=== PATIENT | male | born 1995 | race Asian ===

== ENCOUNTER 2017-07-08 09:47 | Emergency (ER) | payer OTHER ==
[2017-07-08 10:06] VITALS: TEMP 36.4
[2017-07-08] MEDS ORDERED: FAMOTIDINE 20MG/5ML IV PUSH IV STA (10:27)
[2017-07-08] MEDS ORDERED: SODIUM CHLORIDE 0.9% 1000ML 1,000 ML IV STA (10:27)
[2017-07-08] MEDS ORDERED: METHYLPREDNISOLONE 125 MG VIAL IV STA (10:27)
[2017-07-08] MEDS ORDERED: DiphenhydrAMINE HCL 50 MG/ML VIAL IV STA (10:27)
[2017-07-08] MEDS ORDERED: PRED50TA PO (12:08)
--- NOTE | 2017-07-08 12:08 | EMERGENCY ROOM VISIT NOTE ---
ED Visit Note First contact with patient: 10:09 CHIEF COMPLAINT: Itchy skin rash, congestion and itchy, watery eyes 90 minutes HISTORY OF PRESENT ILLNESS: Patient is a 22-year-old male who presents emergency department for evaluation of generalized hives, itchy, watery eyes and a runny nose that started about 90 minutes ago. Patient reports that he was up most of the night visiting with friends. He notes that he was around cats at 1:00 in the morning, states that he has some known allergies to cats so when he noted some itchy, watery eyes and a runny nose and sneezing he was not that concerned. He ate some cherries between 6 and 7 AM, which he is also had before without any problems. He went to bed around 7 AM, and woke up roughly 90 minutes later with generalized itching. He got up and looked in the mirror and noticed that his ears were swollen and he had a red, raised rash essentially throughout his entire body. That was roughly 90 minutes prior to arrival in the emergency department. He did not take any medications, nor perform any interventions for him symptoms. He has no pain. He denies any swelling of his lips, tongue or throat, no difficulty breathing or swallowing. No chest pain, wheezing or shortness of breath. He has never had reactions similar to this previously. He reports that he started taking a Centrum multivitamin about a week ago, and has been very drinking protein shakes, otherwise denies any other new exposure to any potential allergens such as new medications, clothes, detergents, cosmetic products, or foods. REVIEW OF SYSTEMS: Review of systems as per HPI. All other systems reviewed were negative. 10 systems reviewed. PMH: Electronic medical records are reviewed and summarized as above/below. See Problem List. SOCIAL HISTORY: Patient lives at home. College student. Smoker. PHYSICAL EXAM: Vital Signs: Reviewed Nurse's notes. CONSTITUTIONAL: Patient is a well-appearing 22-year-old male who is awake and alert and in no acute distress. HEENT: Normocephalic, atraumatic. Pupils equal, round, reactive to light and accommodation. EOMs intact without nystagmus. Sclera are anicteric. Mild conjunctival injection without drainage. Tympanic membranes intact, with normal landmarks. External canals are clear. Oral and nasopharynx are clear. Mucous membranes are moist. LUNGS: Clear to auscultation and breath sounds equal, no wheezes, rales, or rhonchi. HEART: Regular rate and rhythm. INTEGUMENTARY: Patient has a diffuse, erythematous, raised rash consistent with urticaria noted on the torso, the arms and the legs. He also has swelling and erythema of the ears bilaterally. His lips are slightly swollen, no urticarial lesions noted on the face however. EMERGENCY DEPARTMENT COURSE: The patient was seen and evaluated as above. IV lock was initiated. He was hydrated with normal saline solution, and medicated with Benadryl 50 mg, Pepcid 20 mg and Solu-Medrol 125 mg IV. The patient was reassessed frequently. Shortly after administration of the IV Benadryl and Pepcid, the hives and erythema were beginning to improve, and on recheck after roughly 2 hours in the emergency department, hives had completely resolved. The patient felt a little fatigued from the medications. Supportive care measures were discussed. It is unclear at this time what could have triggered the urticarial reaction. The patient does not have any clear element by history. Certainly some of his upper respiratory symptoms could be related to his cat allergy, but whether the urticaria is also related to that is unclear. Nonetheless the patient has responded well to IV medications. Urticaria are completely resolved. The patient was placed on a short burst of prednisone. He was also educated on use of [id number] Benadryl and ranitidine for continued symptomatic relief. He was educated on the worrisome signs or symptoms for which she should return to the emergency department, and otherwise was advised to follow-up with [facility] if his symptoms are not improving. If he continues to have reactions similar to this he may require allergy testing. Differential diagnoses include urticarial reaction, allergic reaction, URI or viral illness, others. He is not demonstrating any evidence for inclination towards anaphylaxis. Differential diagnoses also entertained included cellulitis, pityriasis, among others. Medication reconciliation: I attest that I have personally reviewed the patient' s current medication list. Blood pressure screening : Patient was found to have normal blood pressure on screening and does not require follow-up. Current/Historical Medications Scheduled Prednisone (Prednisone), 50 MG PO DAILY Allergies Coded Allergies: No Known Allergies (Unverified , 07/08/17) Vital Signs Date Time Temp Pulse Resp B/P (MAP) Pulse Ox O2 Delivery O2 Flow Rate FiO2 07/08/17 12:20 113 16 113/69 98 07/08/17 11:30 65 20 113/67 97 Room Air 07/08/17 10:06 36.4 70 20 105/72 97 Room Air Medications Administered Medications (Trade) Dose Ordered Sig/Ulices Route Start Time Stop Time Status Last Admin Dose Admin Diphenhydramine HCl (Benadryl Inj) 50 mg NOW STAT IV 07/08/17 10:27 07/08/17 10:29 DC 07/08/17 10:39 50 MG Methylprednisolone Sodium Succinate (Solu-Medrol IV) 125 mg NOW STAT IV 07/08/17 10:27 07/08/17 10:29 DC 07/08/17 10:39 125 MG Famotidine (Pepcid 20mg Iv Push) 20 mg ONE STAT IV 07/08/17 10:27 07/08/17 10:29 DC 07/08/17 10:39 20 MG Sodium Chloride 1,000 ml @ 999 mls/hr Q1H1M STAT IV 07/08/17 10:27 07/08/17 11:27 DC 07/08/17 10:40 999 MLS/HR Departure Information Impression Primary Impression: Allergic reaction Additional Impression: Urticaria Prescriptions Prednisone (Prednisone) 50 Mg Tab 50 MG PO DAILY for 5 Days, #5 TAB Prov: Tammy Calle PA 07/08/17 Patient Instructions My [facility] Additional Instructions DO NOT drive, drink alcohol, operate machinery, or perform dangerous activities today. You were given medications in the ER that can affect your ability to safely function or operate a vehicle. Prednisone 50mg: Once daily until the prescription is finished. It is best to take this earlier in the day as some patients note occasional difficulty falling asleep when taken in the late evening. Diphenhydramine(Benadryl) 25mg: use 25 to 50 mg as needed every six hours for swelling, itching, or hives. This medication is sedating and will cause drowsiness. Avoid alcohol, operating machinery or dangerous equipment, working on ladders or roofs, DRIVING, or situations where being under the influence may be dangerous. Zantac 75: Take two pills twice a day along with Benadryl as needed for swelling , itching, or hives. Most people know this for its affect on the stomach, but it also acts similar to, but less potent than Benadryl for allergic reactions. Both the Benadryl and the Zantac are available [id number]. Read all the package inserts or medication information paperwork provided. If you have any questions or concerns call your primary provider, pharmacist or the ER for assistance. Continue current medications. Return to the emergency department for worsening of your rash, swelling of your face, lips, tongue, or throat, difficulty breathing, vomiting, or as needed. Follow-up with your primary care physician in 2-3 days for a recheck of your current condition. Problem Qualifiers Primary Impression: Allergic reaction Encounter type: initial encounter Qualified Codes: T78.40XA - Allergy, unspecified, initial encounter
[2017-07-08 12:20] VITALS: BP 113/69; PULSE 113; O2SAT 98
== END 2017-07-08 12:20 | disposition home or self-care (01) ==
LOC: C.EDB 09:51
DX: T78.40XA Allergy, unspecified, initial encounter (principal); Z91.048 Other nonmedicinal substance allergy status; Z72.0 Tobacco use